=== PATIENT | female | born 1945 ===

== ENCOUNTER 2017-12-24 09:15 | Day surgery (SDC) | payer MEDICARE ==
[~2017-12-24 09:15] MED LIST: HEPARIN 10,000 UNITS/10 ML ONE; MARCAINE 0.5% 30 ML INFILTRATI ONE; NACL 0.9% 1000 ML 1,000 ML IV SCH; NACL 0.9% 500 ML 500 ML ONE; NITROGLYCERIN SYRINGE 0 ML ONE; NITROGLYCERIN SYRINGE 3 ML ONE; PAPAVERINE ONE; PROTAMINE SULFATE ONE; RIFADIN ONE; SODIUM BICARBONATE ONE; VANCOMYCIN/NS 1 GM/250 ML 1 GM/250 ML BAG IV NR; XYLOCAINE 1%/ EPI 1:100,000 INFILTRATI ONE
--- NOTE | 2017-12-24 10:27 | Anesthesia Consultation ---
Anesthesia Consult and Med Hx Date of service: 12/24/17 - Airway Anesthetic Teeth Evaluation: Good ROM Head & Neck: Adequate Mental/Hyoid Distance: Adequate Mallampati Class: Class II Intubation Access Assessment: Probably Good - Pulmonary Exam CTA: Yes - Cardiac Exam Cardiac Exam: RRR - Pre-Operative Health Status ASA Pre-Surgery Classification: ASA3 Proposed Anesthetic Plan: General - Pre-Anesthesia Comment Pre-Anesthesia Comments: PONV - Cardiovascular System Hx Hypertension: Yes Hx Coronary Artery Disease: Yes Hx Percutaneous Transluminal Coronary Angioplasty (PTCA): Yes (2012) - Gastrointestinal Hx Gastroesophageal Reflux Disease: Yes - Endocrine Hx Renal Disease: Yes Hx End Stage Renal Disease: Yes ()
[2017-12-24] MEDS ORDERED: DECADRON IV NR (10:33)
--- NOTE | 2017-12-24 10:33 | Anesthesia Day of Surgery ---
Anesthesia Day of Surgery - Day of Surgery Patient Examined: Yes Patient H&P Reviewed: Yes Patient is NPO: Yes
[2017-12-24 11:00] LABS: Basophils # (Auto) 0.1 K/mm3 (0.0-0.1); Basophils % (Auto) 0.9 % (0.0-1.8); Eosinophils # (Auto) 0.6 K/mm3 (0.0-0.4); Hematocrit 30.8 % (30.3-42.9); Hemoglobin 10.3 gm/dl (10.1-14.3); Lymphocytes # (Auto) 1.3 K/mm3 (1.2-5.4); Lymphocytes % (Auto) 18.6 % (13.4-35.0); Mean Corpuscular HGB Conc 34 % (30-34); Mean Corpuscular Hemoglobin 31 pg (28-32); Mean Corpuscular Volume 93 fl (79-97); Monocytes # (Auto) 0.7 K/mm3 (0.0-0.8); Monocytes % (Auto) 10.6 % (0.0-7.3); Platelet Count 265 K/mm3 (140-440); Red Blood Count 3.31 M/mm3 (3.65-5.03); Red Cell Distribution Width 14.4 % (13.2-15.2)
[2017-12-24] MEDS ORDERED: VERSED IV NR (11:00)
[2017-12-24] MEDS ORDERED: PEPCID PO NR (11:00)
[2017-12-24] MEDS ORDERED: TRANSDERM-SCOP TD NR (11:00)
[2017-12-24 11:11] LABS: Calcium 8.8 mg/dL (8.4-10.2)
[2017-12-24] MEDS ORDERED: DIPRIVAN 10 MG/ML IV ONE (13:51)
[2017-12-24] MEDS ORDERED: XYLOCAINE MPF 2% ONE (13:52)
[2017-12-24] MEDS ORDERED: HEPARIN 10,000 UNITS/10 ML 2,000 UNIT in NACL 0.9% 500 ML 500 ML IR ONE (14:41)
[2017-12-24] MEDS ORDERED: SUBLIMAZE ONE (14:47)
[2017-12-24] MEDS ORDERED: NACL 0.9% IR ONE (15:01)
[2017-12-24] MEDS ORDERED: MARCAINE 0.5% INFILTRATI ONE ×2 (15:01)
[2017-12-24] MEDS ORDERED: ZOFRAN ONE (16:02)
--- NOTE | 2017-12-24 18:08 | Short Stay Summary ---
Short Stay Documentation Date of service: 12/24/17 Narrative H&P: See H&P - History H&P: obtained from office - Allergies and Medications Current Medications: Allergies Penicillins Allergy (Verified 12/23/17 13:46) Unknown Home Medications Medication Instructions Recorded Confirmed Last Taken Type Lisinopril [Zestril TAB] 10 mg PO DAILY 12/24/17 12/24/17 12/23/17 History Metoprolol [Lopressor TAB] 50 mg PO BID 12/24/17 12/24/17 12/24/17 History Sevelamer Carbonate [Renvela] 800 mg PO TID 12/24/17 12/24/17 12/23/17 History cloNIDine [Catapres] 0.1 mg PO DAILY 12/24/17 12/24/17 12/22/17 History hydrALAZINE 25 mg PO TID 12/24/17 12/24/17 12/24/17 History Active Medications Dexamethasone (Decadron) 4 mg IV PREOP NR Stop: 12/24/17 23:59 Last Admin: 12/24/17 11:02 Dose: 4 mg Famotidine (Pepcid) 20 mg PO PREOP NR Stop: 12/24/17 23:59 Last Admin: 12/24/17 11:00 Dose: 20 mg Sodium Chloride (Nacl 0.9% 1000 Ml) 1,000 mls @ 42 mls/hr IV DIRECT YOBANI Last Admin: 12/24/17 10:55 Dose: 42 mls/hr Vancomycin HCl (Vancomycin/Ns 1 Gm/250 Ml) 1 gm in 250 mls @ 166.667 mls/hr IV PREOP NR; Protocol Stop: 12/24/17 23:59 Midazolam HCl (Versed) 2 mg IV PREOP NR Stop: 12/24/17 23:59 Last Admin: 12/24/17 11:05 Dose: 2 mg Scopolamine (Transderm-Scop) 1 each TD PREOP NR Stop: 12/27/17 10:59 Last Admin: 12/24/17 11:03 Dose: 1 each - Brief post op/procedure progress note Date of procedure: 12/24/17 Pre-op diagnosis: Complications of Dialysis Access Post-op diagnosis: same Procedure: 1. One Stage Creation of Right Brachiobasilic Arteriovenous Fistula 2. Excision of right arm AV fistula Pseudoaneurysms Anesthesia: GETA Surgeon: MIGUELINA RIBERA Estimated blood loss: other (300 ml) Pathology: list (right AV fistula pseudoaneurysms) Specimen disposition: to lab Condition: stable - Disposition Condition at discharge: Good Disposition: DC-01 TO HOME OR SELFCARE Short Stay Discharge Plan Activity: other (no heavy lifting with right arm) Wound: open to air, keep clean and dry, other (okay to wash the wound with soap and water but do not soak in water) Follow up with: MIGUELINA RIBERA MD [Staff Physician] - 14 Days Prescriptions: HYDROcodone/APAP 7.5-325 [[place] 7.5/325] 1 each PO Q6HR PRN #60 tablet PRN Reason: Pain
--- NOTE | 2017-12-24 18:10 | Operative Report ---
Operative Report Operative Report: Date of procedure: 12/24/2017 Pre-operative diagnosis: Complications of Dialysis Access Post-operative diagnosis: Same Procedure(s): 1. One Stage Creation of Right Brachiobasilic Arteriovenous Fistula 2. Excision of right arm AV fistula Pseudoaneurysms Surgeon: Ramos Nieto MD Manager Post: None Anesthesia: General Endotracheal Anesthesia EBL: 300 mL Counts: Correct Complications: None Condition: Stable Findings: Successful elevation of right brachiobasilic fistula with excellent thrill. Specimen: None Indication: The patient is a 72 year old female with a history of ESRD currently on hemodialysis through a right internal jugular permacath secondary to thrombosis of her right arm AV fistula. She is in need of creation of long-term access. She had vein mapping that demonstrated adequate size of her basilic vein for creation of an AV fistula. She was given the risk, benefits, and alternative procedures and consented to the procedure. Description of Procedure: The patient was brought to the operating room and laid in supine position after general endotracheal anesthesia was achieved her right arm was prepped and draped in normal sterile fashion. A longitudinal incision was then created on the medial aspect of the arm centered over the fistula extending from the axillary crease to the antecubital crease. Sharp dissection was used to continue the dissection down to the basilic The basilic was then dissected circumferentially and all side branches were suture ligated and divided. Prior to dividing the basilic vein I decided to excise the patient's large pseudoaneurysms in the midportion of her arm to allow for tunneling of her new fistula. I made a longitudinal incision centered over her pseudoaneurysms, intermediate arm and carried them down to the pseudoaneurysms using a curved Hines. The venous outflow of the normal portion of the brachiocephalic fistula was ligated with a 3-0 Prolene and divided. I then dissected the remaining portion of the fistula including the pseudoaneurysms towards the arterial inflow. I clamped the arterial inflow which was occluded, and ligated it with a 3-0 Prolene. I then excised the pseudoaneurysms. Hemostasis within the wound was then achieved with a combination of cautery and Quick clot. Once hemostasis was achieved the excess skin including the thin skin overlying the pseudoaneurysms was excised and that wound was closed in 2 layers using a 3-0 Vicryl in running fashion in the deep dermal layer and a 4-0 Monocryl in running fashion and the subcuticular layer. I then clamped and divided the basilic vein at the distal aspect of the incision. A Chelsy-Wick tunneler was then used to tunnel from the distal part of the incision towards the proximal portion of the incision and a lateral and slightly curved direction. I clamped the vein, with an angled DeBakey clamp in the axilla, and infused it with heparinized saline to dilate the vein and then I marked on the anterior surface. This secured the vein to the Chelsy-Wick tunneler with 2-0 silk and then pulled retrograde through the tunnel. I flushed the vein with heparinized saline and passed a 3 Akanksha to confirm that there was no evidence of twist or kinks. I dissected out the brachial artery in the distal aspect of the incision and controlled it with vessel loops. I clamped the artery and created an arteriotomy using an 11 blade and Arceo scissors and then I created an end-to -side anastomosis using 6-0 Prolene in running fashion. After completing the anastomosis are released all clamps allow flow into the fistula which had an excellent thrill. I achieved hemostasis in the wound with a combination of direct pressure and electrocautery. I then anesthetized the wound with 0.5% Marcaine and closed the wound in 2 layers using a 3-0 Vicryl in running fashion in the deep dermal layer and a 4-0 Monocryl in running fashion in the subcuticular. I then dressed the both wounds with Dermabond. The patient tolerated the procedure well, all sponge, needle, and instrument counts were correct, the patient was taken to the recovery area in stable condition.
[2017-12-24] MEDS ORDERED: NORCO 7.5/325 PO PRN (18:32)
[2017-12-24 20:25] VITALS: BP 165/80
== END 2017-12-24 19:40 | disposition home or self-care (01) ==
LOC: OR 09:15
PROVIDERS: ATTEND Surgery Vascular Surgery
DX: T82.868A Thrombosis due to vascular prosthetic devices, implants and grafts, initial encounter (principal); K21.9 Gastro-esophageal reflux disease without esophagitis; I25.10 Atherosclerotic heart disease of native coronary artery without angina pectoris; I12.0 Hypertensive chronic kidney disease with stage 5 chronic kidney disease or end stage renal disease; N18.6 End stage renal disease; Z98.61 Coronary angioplasty status; Z88.0 Allergy status to penicillin; Y83.2 Surgical operation with anastomosis, bypass or graft as the cause of abnormal reaction of the patient, or of later complication, without mention of misadventure at the time of the procedure
CPT/HCPCS: 36415; 36832; 37607; 80048; 85025; 88304; 88311; C1757; J1100; J1644; J2250; J2405; J2704; J3010; J3370; J7030; J7040; J2440; J2720; J3490